=== PATIENT | female | born 1985 | race African-American/Black ===

== ENCOUNTER 2019-06-16 02:22 | Emergency (ER) | payer MEDICAID ==
[~2019-06-16] VITALS: Ht 165.1 cm; Wt 68.0 kg
[~2019-06-16 02:22] MED LIST: CIPRO; CODEINE; MEDROXYPROGESTERONE; TRAMADOL; VICODIN
[2019-06-16 03:05] LABS: CHLORIDE 109 mEq/L (98-107)
[2019-06-16 03:15] LABS: BASOPHILS % 0.6 % (0.0-2.0); EOSINOPHILS % 2.6 % (0.0-5.0); HEMATOCRIT. 40.7 % (36.0-48.0); HEMOGLOBIN. 13.8 g/dL (12.0-16.0); LYMPHOCYTES % 45.6 % (20.0-50.0); MEAN CORPUSCULAR HEMOGLOBIN 29.6 pg (28.0-32.0); MEAN CORPUSCULAR VOLUME 87.4 fL (81.0-99.0); MONOCYTES % 6.8 % (2.0-8.0); NEUTROPHILS % 44.4 % (40.0-76.0); PLATELET 180 x1000/uL (130-400); RED BLOOD CELL COUNT 4.66 mill/uL (4.2-5.4); RED CELL DISTRIBUTION WIDTH 13.5 % (11.6-14.6)
[2019-06-16 03:16] LABS: B-HCG QUANTITATIVE 16 mIU/mL (<3)
[2019-06-16] MEDS ORDERED: METHOTREXATE SODIUM/PF 50 MG/2 ML VIAL IM ONE (05:30)
[2019-06-16 10:53] VITALS: BP 112/67
== END 2019-06-16 13:30 | disposition home or self-care (01) ==
LOC: ER 02:50
DX: O00.90 Unspecified ectopic pregnancy without intrauterine pregnancy (principal)
CPT/HCPCS: 36415; 76801; 76817; 80053; 81025; 84702; 85025; 86850; 86900; 86901; 96372; 99285; J9260

== ENCOUNTER 2022-06-16 14:04 | Emergency (ER) | payer MEDICAID ==
[~2022-06-16] VITALS: Ht 175.3 cm; Wt 110.0 kg
[2022-06-16 14:09] VITALS: BP 108/54
[2022-06-16 14:59] LABS: CHLORIDE 107 mEq/L (98-107)
[2022-06-16 15:10] LABS: BASOPHILS % 0.5 % (0.0-2.0); HCG SCREEN POSITIVE; HEMATOCRIT. 43.1 % (36.0-48.0); HEMOGLOBIN. 14.4 g/dL (12.0-16.0); LYMPHOCYTES % 39.2 % (20.0-50.0); MEAN CORPUSCULAR HEMOGLOBIN 29.6 pg (28.0-32.0); MEAN CORPUSCULAR VOLUME 88.9 fL (81.0-99.0); MEAN PLATELET VOLUME 9.2 fl (7.4-10.4); MONOCYTES % 11.2 % (2.0-8.0); NEUTROPHILS % 48.1 % (40.0-76.0); PLATELET 261 x1000/uL (130-400); RED BLOOD CELL COUNT 4.85 mill/uL (4.2-5.4)
[2022-06-16 22:55] LABS: CLARITY URINE CLOUDY (CLEAR); COLOR URINE YELLOW (YELLOW); KETONES URINE 1+ (NEGATIVE); LEUKOCYTE ESTERASE URINE TRACE (NEGATIVE); NITRITE URINE NEGATIVE (NEGATIVE); OCCULT BLOOD URINE 3+ (NEGATIVE); PH URINE 5.5 (4.5-8.0); PROTEIN URINE TRACE (NEGATIVE); SPECIFIC GRAVITY URINE 1.023 (1.005-1.030); UROBILINOGEN URINE 0.2 E.U./dL (0.2-1.0)
[2022-06-16] MEDS ORDERED: SODIUM CHLORIDE 0.9% 1,000 ML IV ONE (23:00)
[2022-06-16 23:49] LABS: BASOPHILS % 0.6 % (0.0-2.0); EOSINOPHILS % 0.9 % (0.0-5.0); HEMOGLOBIN. 13.2 g/dL (12.0-16.0); LYMPHOCYTES % 43.1 % (20.0-50.0); MEAN CORPUSCULAR HEMOGLOBIN 29.1 pg (28.0-32.0); MEAN CORPUSCULAR VOLUME 88.2 fL (81.0-99.0); MEAN PLATELET VOLUME 9.2 fl (7.4-10.4); MONOCYTES % 10.2 % (2.0-8.0); NEUTROPHILS % 45.2 % (40.0-76.0); PLATELET 237 x1000/uL (130-400); RED BLOOD CELL COUNT 4.54 mill/uL (4.2-5.4)
[2022-06-16 23:58] LABS: CHLORIDE 105 mEq/L (98-107)
[2022-06-17] MEDS ORDERED: ONDANSETRON HCL 4MG/2ML INJ IV NR
[2022-06-17] MEDS ORDERED: ACETAMINOPHEN 325MG TABLET PO NR
== END 2022-06-17 02:14 | disposition home or self-care (01) ==
LOC: ER 14:04
DX: O00.01 Abdominal pregnancy with intrauterine pregnancy (principal); Z3A.01 Less than 8 weeks gestation of pregnancy
CPT/HCPCS: 36415; 76801; 76817; 80053; 81003; 83605; 83690; 84702; 84703; 85025; 85610; 96360; 99284; J2405

== ENCOUNTER 2023-07-03 06:45 | Emergency (ER) | payer MEDICAID ==
[~2023-07-03] VITALS: Ht 167.6 cm; Wt 70.0 kg
[2023-07-03 06:47] VITALS: O2SAT 98
[2023-07-03] MEDS ORDERED: SODIUM CHLORIDE 0.9% 1,000 ML IV ONE (07:00)
[2023-07-03 07:24] LABS: BASOPHILS % 0.8 % (0.0-2.0); CHLORIDE 107 mEq/L (98-107); EOSINOPHILS % 0.4 % (0.0-5.0); HEMATOCRIT. 43.6 % (36.0-48.0); HEMOGLOBIN. 13.8 g/dL (12.0-16.0); LYMPHOCYTES % 20.4 % (20.0-50.0); MEAN CORPUSCULAR HGB CONC 31.8 g/dL (31.0-37.0); MEAN CORPUSCULAR VOLUME 94.5 fL (81.0-99.0); MONOCYTES % 8.3 % (2.0-8.0); NEUTROPHILS % 70.1 % (40.0-76.0); PLATELET 163 x1000/uL (130-400); POTASSIUM 3.7 mEq/L (3.5-5.1); RED BLOOD CELL COUNT 4.61 mill/uL (4.2-5.4); RED CELL DISTRIBUTION WIDTH 14.7 % (11.6-14.6); SODIUM 140 mEq/L (136-145); WHITE BLOOD COUNT 5.6 x1000/uL (4.5-11.0)
[2023-07-03 07:25] LABS: CALCIUM 9.8 mg/dL (8.7-10.4); CARBON DIOXIDE 20 mEq/L (21-32)
[2023-07-03 07:30] LABS: CREATININE 1.2 mg/dL (0.6-1.0); GLUCOSE 81 mg/dL (70-105); UREA NITROGEN BLOOD 7 mg/dL (9-23)
[2023-07-03 07:35] VITALS: BP 126/86; PULSE 125; RESP 16; TEMP 98.6
[2023-07-03 07:55] LABS: ETHANOL BLOOD < 10 mg/dL (<10)
== END 2023-07-03 08:02 | disposition home or self-care (01) ==
LOC: ER 06:45
DX: R00.0 Tachycardia, unspecified (principal); F19.10 Other psychoactive substance abuse, uncomplicated
CPT/HCPCS: 80048; 80320; 85025; 36415; 99283; J7030; G0480

== ENCOUNTER 2023-09-02 02:05 | Emergency (ER) | payer MEDICAID ==
[~2023-09-02] VITALS: Ht 167.6 cm; Wt 73.0 kg
[2023-09-02 02:05] VITALS: BP 134/80; PULSE 76; RESP 16; TEMP 97.8; O2SAT 97
== END 2023-09-02 04:49 | disposition home or self-care (01) ==
LOC: ER 02:05
DX: T63.301A Toxic effect of unspecified spider venom, accidental (unintentional), initial encounter (principal); Z00.00 Encounter for general adult medical examination without abnormal findings; Y92.9 Unspecified place or not applicable
CPT/HCPCS: 99283

== ENCOUNTER 2023-09-11 18:35 | Emergency (ER) | payer MEDICAID ==
[~2023-09-11] VITALS: Ht 167.6 cm; Wt 64.0 kg
[2023-09-11 18:42] VITALS: BP 147/74; PULSE 82; RESP 16; TEMP 98.6; O2SAT 100
== END 2023-09-11 23:53 | disposition left against medical advice (07) ==
LOC: ER 18:35
DX: R68.89 Other general symptoms and signs (principal); Z53.21 Procedure and treatment not carried out due to patient leaving prior to being seen by health care provider
CPT/HCPCS: 81025; 99283

== ENCOUNTER 2024-10-07 13:51 | Emergency (ER) | payer MEDICAID ==
[~2024-10-07] VITALS: Ht 157.5 cm; Wt 77.0 kg
[2024-10-07 13:52] VITALS: O2SAT 98
[2024-10-07 14:33] LABS: BASOPHILS % 0.4 % (0.0-2.0); EOSINOPHILS % 0.8 % (0.0-5.0); HEMATOCRIT. 31.5 % (36.0-48.0); HEMOGLOBIN. 10.3 g/dL (12.0-16.0); LYMPHOCYTES % 21.9 % (20.0-50.0); MEAN PLATELET VOLUME 9.5 fl (7.4-10.4); MONOCYTES % 11.7 % (2.0-8.0); NEUTROPHILS % 65.2 % (40.0-76.0); PLATELET 181 x1000/uL (130-400); RED BLOOD CELL COUNT 3.44 mill/uL (4.2-5.4); RED CELL DISTRIBUTION WIDTH 13.5 % (11.6-14.6)
[2024-10-07 14:46] LABS: CREATININE 0.7 mg/dL (0.6-1.0); UREA NITROGEN BLOOD 7 mg/dL (9-23)
[2024-10-07 14:47] VITALS: BP 112/65; PULSE 98; RESP 18; TEMP 36.7; O2SAT 96
[2024-10-07 14:47] LABS: ASPARTATE AMINOTRANSFERASE 19 IU/L (<34)
[2024-10-07 14:48] LABS: BILIRUBIN DIRECT < 0.1 mg/dL (<=3.0); BILIRUBIN TOTAL 0.4 mg/dL (0.1-1.0); PROTEIN TOTAL 5.9 g/dL (6.0-8.3)
[2024-10-07 14:53] VITALS: TEMP 98.1
[2024-10-07] MEDS: ACETAMINOPHEN 325MG TABLET PO ONE (14:53)
[2024-10-07 14:55] LABS: INR 1.0
[2024-10-07 15:18] LABS: CLARITY URINE TURBID (CLEAR); COLOR URINE DARK YELLOW (YELLOW); GLUCOSE URINE NEGATIVE (NEGATIVE); KETONES URINE TRACE (NEGATIVE); LEUKOCYTE ESTERASE URINE 2+ (NEGATIVE); NITRITE URINE NEGATIVE (NEGATIVE); OCCULT BLOOD URINE 3+ (NEGATIVE); PH URINE 6.0 (4.5-8.0); PROTEIN URINE 3+ (NEGATIVE); SPECIFIC GRAVITY URINE 1.031 (1.005-1.030); UROBILINOGEN URINE 1.0 E.U./dL (0.2-1.0)
[2024-10-07 15:59] LABS: BACTERIA URINE 3+; RBC URINE TNTC /hpf (0-2); SQUAMOUS EPITHELIAL CELL URINE 2+ /lpf (RARE/1+)
== END 2024-10-07 15:36 | disposition home or self-care (01) ==
LOC: ER 13:51
DX: O26.893 Other specified pregnancy related conditions, third trimester (principal); R10.9 Unspecified abdominal pain; Z98.890 Other specified postprocedural states; Z3A.37 37 weeks gestation of pregnancy; Z79.899 Other long term (current) drug therapy
CPT/HCPCS: 36415; 76805; 80048; 80076; 81003; 83735; 85025; 86850; 86900; 99284